=== PATIENT | female | born 1975 | race Two or more races ===

== ENCOUNTER 2020-07-18 09:47 | Outpatient (CLI) | payer BC ==
[2020-07-18] MEDS ORDERED: GADOTERATE MEGLUMINE 10 MMOL/20 ML VIAL IV ONE (15:37)
== END 2020-07-18 23:59 | disposition home or self-care (01) ==
LOC: MRI 09:47
PROVIDERS: ATTEND Family Medicine
DX: K76.9 Liver disease, unspecified (principal); K76.0 Fatty (change of) liver, not elsewhere classified
CPT/HCPCS: 74183; A9575

== ENCOUNTER 2020-07-29 09:40 | Outpatient (CLI) | payer BC ==
[2020-07-29 11:37] LABS: CALCIUM, SERUM 8.8 mg/dL (8.5-10.1); CREATININE 0.8 mg/dL (0.6-1.3); POTASSIUM 4.6 mmol/L (3.5-5.1)
[2020-07-29 11:43] LABS: C-REACTIVE PROTEIN 0.3 mg/dL (0.0-0.9); URIC ACID 4.5 mg/dL (2.6-7.2)
[2020-07-31 17:07] LABS: H. PYLORI AB IgA <9.0 units (0.0-8.9)
== END 2020-07-29 23:59 | disposition home or self-care (01) ==
LOC: LAB 09:40
PROVIDERS: ATTEND Family Medicine
DX: D25.9 Leiomyoma of uterus, unspecified (principal); D18.03 Hemangioma of intra-abdominal structures; M25.9 Joint disorder, unspecified; M25.50 Pain in unspecified joint
CPT/HCPCS: 36415; 80048-TC; 84550-TC; 85652-TC; 86140-TC; 86431-TC; 86677

== ENCOUNTER 2020-08-11 11:07 | Outpatient (CLI) | payer BC ==
[2020-08-11] MEDS ORDERED: GADOTERATE MEGLUMINE 10 MMOL/20 ML VIAL IV ONE (11:08)
== END 2020-08-11 23:59 | disposition home or self-care (01) ==
LOC: MRI 11:07
PROVIDERS: ATTEND Family Medicine
DX: K76.0 Fatty (change of) liver, not elsewhere classified (principal); K76.89 Other specified diseases of liver; D18.03 Hemangioma of intra-abdominal structures
CPT/HCPCS: 74183; A9575

== ENCOUNTER 2020-08-26 10:10 | Outpatient (CLI) | payer BC ==
[2020-08-26 10:47] LABS: BILIRUBIN,URINE NEGATIVE (NEGATIVE); COLOR,URINE YELLOW (YELLOW); LEUKOCYTE ESTERASE ,URINE NEGATIVE (NEGATIVE); NITRITE, URINE NEGATIVE (NEGATIVE); PROTEIN,URINE NEGATIVE (NEGATIVE); UGLUCOSE NEGATIVE (NEGATIVE); UROBILINOGEN,URINE 0.2 EU/dL (0.2)
[2020-08-26 10:52] LABS: CALCIUM, SERUM 8.3 mg/dL (8.5-10.1); CREATININE 0.7 mg/dL (0.6-1.3); POTASSIUM 4.3 mmol/L (3.5-5.1)
[2020-08-26 11:59] LABS: BACTERIA,URINE Rare /HPF (None Seen); SQUAMOUS EPITHELIAL CELL,UR Few /HPF (None Seen); WBC,URINE 0-2 /HPF (0-3)
== END 2020-08-26 23:59 | disposition home or self-care (01) ==
LOC: LAB 10:10
PROVIDERS: ATTEND Family Medicine
DX: Z00.01 Encounter for general adult medical examination with abnormal findings (principal)
CPT/HCPCS: 36415; 80048-TC; 80061-TC; 81001; 84550-TC

== ENCOUNTER 2020-12-03 12:34 | Emergency (ER) | payer BC ==
[~2020-12-03] VITALS: Ht 160 cm; Wt 76.2 kg
[2020-12-03] MEDS ORDERED: ACETAMINOPHEN ES 500 MG TABLET PO ONE (13:00)
[2020-12-03] MEDS ORDERED: KETOROLAC TROMETHAMINE INJ 30 MG/ML VIAL IM ONE (13:00)
[2020-12-03] MEDS ORDERED: ACETAMINOPHEN ES 500 MG TABLET ONE (13:08)
[2020-12-03] MEDS ORDERED: KETOROLAC TROMETHAMINE 15 MG/ML VIAL ONE (13:08)
[2020-12-03] MEDS ORDERED: CYCL10TA9 PO (13:46)
[2020-12-03] MEDS ORDERED: CYCL5TAB PO (13:47)
--- NOTE | 2020-12-03 13:58 | NUR ---
Patient discharged to home in stable condition. Written and verbal after care instructions given. Patient verbalizes understanding of instruction.
[2020-12-03 14:04] VITALS: BP 108/66
== END 2020-12-03 14:04 | disposition home or self-care (01) ==
LOC: ER 12:34
DX: M62.838 Other muscle spasm (principal); H11.32 Conjunctival hemorrhage, left eye; R51.9 Headache, unspecified; Z79.899 Other long term (current) drug therapy
CPT/HCPCS: 70450; 96372; 99284; J1885

== ENCOUNTER 2021-02-17 09:03 | Outpatient (CLI) | payer BC ==
[~2021-02-17 09:03] MED LIST: CYCL5TAB PO
[2021-02-17] MEDS ORDERED: GADOTERATE MEGLUMINE 10 MMOL/20 ML VIAL IV ONE (09:04)
== END 2021-02-17 23:59 | disposition home or self-care (01) ==
LOC: MRI 09:03
PROVIDERS: ATTEND Nurse Practitioner
DX: D18.09 Hemangioma of other sites (principal); K76.0 Fatty (change of) liver, not elsewhere classified
CPT/HCPCS: 74183; A9575

== ENCOUNTER 2021-03-13 11:02 | Outpatient (CLI) | payer BC ==
[2021-03-13] MEDS ORDERED: GADOTERATE MEGLUMINE 10 MMOL/20 ML VIAL IV ONE (11:03)
== END 2021-03-13 23:59 | disposition home or self-care (01) ==
LOC: MRI 11:02
PROVIDERS: ATTEND Family Medicine
DX: G31.9 Degenerative disease of nervous system, unspecified (principal); R89.1 Abnormal level of hormones in specimens from other organs, systems and tissues
CPT/HCPCS: 70553; A9575

== ENCOUNTER 2021-07-24 12:37 | Outpatient (CLI) | payer BC | END 2021-07-24 23:59 | disposition home or self-care (01) | LOC: MRI 12:37 | PROVIDERS: ATTEND Family Medicine | DX: M19.011 Primary osteoarthritis, right shoulder (principal); M19.012 Primary osteoarthritis, left shoulder; M75.121 Complete rotator cuff tear or rupture of right shoulder, not specified as traumatic; M75.111 Incomplete rotator cuff tear or rupture of right shoulder, not specified as traumatic; M47.812 Spondylosis without myelopathy or radiculopathy, cervical region; M48.02 Spinal stenosis, cervical region; M25.78 Osteophyte, vertebrae | CPT/HCPCS: 72141-TC; 73221-TC ==

== ENCOUNTER 2021-09-08 09:05 | Outpatient (CLI) | payer BC | END 2021-09-08 23:59 | disposition home or self-care (01) | LOC: US 09:05 | PROVIDERS: ATTEND Family Medicine | DX: N83.201 Unspecified ovarian cyst, right side (principal); N83.202 Unspecified ovarian cyst, left side; D25.9 Leiomyoma of uterus, unspecified | CPT/HCPCS: 76856-TC ==

== ENCOUNTER → 2021-09-25 | Outpatient (CLI) | payer BC ==
[~2021-09-25] MED LIST changes: +GADOTERATE MEGLUMINE 10 MMOL/20 ML VIAL IV ONE; +HYDR-3972 PO
[2021-09-25 10:27] LABS: CREATININE 0.6 mg/dL (0.6-1.3)
== END | disposition home or self-care (01) ==
LOC: LAB 09:20
PROVIDERS: ATTEND Family Medicine
DX: N83.201 Unspecified ovarian cyst, right side (principal); N83.202 Unspecified ovarian cyst, left side; N85.2 Hypertrophy of uterus; D25.9 Leiomyoma of uterus, unspecified; N83.8 Other noninflammatory disorders of ovary, fallopian tube and broad ligament; R16.0 Hepatomegaly, not elsewhere classified; K76.0 Fatty (change of) liver, not elsewhere classified; K76.89 Other specified diseases of liver
CPT/HCPCS: 36415; 72197; 74183; 82565; 84520; 86304; A9575

== ENCOUNTER 2021-09-28 15:28 | Emergency (ER) | payer BC, OTHER ==
[~2021-09-28] VITALS: Ht 160 cm; Wt 74.8 kg
[~2021-09-28 15:28] MED LIST changes: -GADOTERATE MEGLUMINE 10 MMOL/20 ML VIAL IV ONE; -HYDR-3972 PO
--- NOTE | 2021-09-28 15:34 | NUR ---
URINE SPECIMEN COLLECTED AND SENT TO LAB.
--- NOTE | 2021-09-28 15:36 | NUR ---
AT BEDSIDE FOR EVAL.
[2021-09-28] MEDS ORDERED: MORPHINE SULFATE INJ 4 MG/ML DISP.SYRIN ONE (15:44)
[2021-09-28] MEDS ORDERED: ONDANSETRON HCL/PF 4 MG/2 ML VIAL ONE (15:44)
--- NOTE | 2021-09-28 15:47 | NUR ---
IV LINE ESTABLISHED BLOOD DRAWN AND SENT TO LAB.
[2021-09-28] MEDS ORDERED: IV NS 0.9% 1,000 ML BAG IV ONE (16:00)
[2021-09-28] MEDS ORDERED: MORPHINE SULFATE INJ 2 MG/ML DISP.SYRIN IV ONE (16:00)
[2021-09-28] MEDS ORDERED: ONDANSETRON HCL/PF 4 MG/2 ML VIAL IVP ONE (16:00)
[2021-09-28 16:17] LABS: BASOPHILS # (AUTO) 0.1 K/uL (0.0-0.2); BASOPHILS % (AUTO) 0.8 % (0.0-2.0); EOSINOPHILS % (AUTO) 0.8 % (0.0-6.0); HEMATOCRIT 33 % (33-45); HEMOGLOBIN 10.9 g/dL (11.5-14.8); LYMPHOCYTES # (AUTO) 2.1 K/uL (0.8-4.8); LYMPHOCYTES % (AUTO) 17.2 % (20.0-44.0); MEAN CORPUSCULAR HGB CONC 33 g/dl (31.0-36.0); MEAN CORPUSCULAR VOLUME 78 fL (82-100); MONOCYTES # (AUTO) 1.1 K/uL (0.1-1.30); MONOCYTES % (AUTO) 9.2 % (2.0-12.0); NEUTROPHILS # (AUTO) 8.7 K/uL (1.8-8.9); PLATELET COUNT (AUTO) 382 K/uL (150-450); RED BLOOD CELL COUNT(AUTO) 4.27 MIL/uL (4.0-5.2); WHITE BLOOD COUNT (AUTO) 12.1 K/uL (4.3-11.0)
[2021-09-28 16:35] LABS: ALBUMIN 3.1 g/dL (3.4-5.0); BILIRUBIN,DIRECT 0.1 mg/dL (0.0-0.2); BILIRUBIN,TOTAL 0.2 mg/dL (0.2-1.0); CALCIUM, SERUM 8.6 mg/dL (8.5-10.1); CREATININE 0.7 mg/dL (0.6-1.3); POTASSIUM 3.7 mmol/L (3.5-5.1); TOTAL PROTEIN, SERUM 7.7 g/dL (6.4-8.2)
[2021-09-28 17:03] LABS: BILIRUBIN,URINE NEGATIVE (NEGATIVE); COLOR,URINE YELLOW (YELLOW); LEUKOCYTE ESTERASE ,URINE NEGATIVE (NEGATIVE); NITRITE, URINE NEGATIVE (NEGATIVE); PROTEIN,URINE NEGATIVE (NEGATIVE); UGLUCOSE NEGATIVE (NEGATIVE); UROBILINOGEN,URINE 0.2 EU/dL (0.2)
[2021-09-28] MEDS ORDERED: HYDR-3972 PO ×3 (17:03→17:26)
--- NOTE | 2021-09-28 17:20 | NUR ---
DR JETT AT BEDSIDE
[2021-09-28 17:30] VITALS: BP 123/68
--- NOTE | 2021-09-28 17:38 | NUR ---
IV removed. Catheter intact and site benign. Pressure and 4x4 applied to site. No bleeding noted.Patient discharged to home in stable condition. Written and verbal after care instructions given. Patient verbalizes understanding of instruction.
[2021-09-28 17:45] LABS: BACTERIA,URINE None seen /HPF (None Seen); WBC,URINE 0-2 /HPF (0-3)
== END 2021-09-28 17:41 | disposition home or self-care (01) ==
LOC: ER 15:29
DX: R10.2 Pelvic and perineal pain (principal); D25.9 Leiomyoma of uterus, unspecified
CPT/HCPCS: 36415; 80048; 80076; 81001; 85025; 96361; 96374; 96375; 99284; J2270; J2405; J7030

== ENCOUNTER 2021-10-21 11:00 | Outpatient (CLI) | payer BC, OTHER ==
[~2021-10-21 11:00] MED LIST changes: +HYDR-3972 PO
[2021-10-21 12:03] LABS: BASOPHILS # (AUTO) 0.1 K/uL (0.0-0.2); BASOPHILS % (AUTO) 2.3 % (0.0-2.0); EOSINOPHILS % (AUTO) 3.5 % (0.0-6.0); HEMATOCRIT 35 % (33-45); HEMOGLOBIN 11.7 g/dL (11.5-14.8); LYMPHOCYTES # (AUTO) 2.3 K/uL (0.8-4.8); LYMPHOCYTES % (AUTO) 51.7 % (20.0-44.0); MEAN CORPUSCULAR HGB CONC 34 g/dl (31.0-36.0); MEAN CORPUSCULAR VOLUME 75 fL (82-100); MONOCYTES # (AUTO) 0.3 K/uL (0.1-1.30); MONOCYTES % (AUTO) 7.3 % (2.0-12.0); NEUTROPHILS # (AUTO) 1.5 K/uL (1.8-8.9); NEUTROPHILS % (AUTO) 35.2 % (43.0-81.0); PLATELET COUNT (AUTO) 450 K/uL (150-450); RED BLOOD CELL COUNT(AUTO) 4.65 MIL/uL (4.0-5.2); WHITE BLOOD COUNT (AUTO) 4.4 K/uL (4.3-11.0)
[2021-10-21 12:21] LABS: CALCIUM, SERUM 9.3 mg/dL (8.5-10.1); CREATININE 0.7 mg/dL (0.6-1.3); POTASSIUM 4.1 mmol/L (3.5-5.1)
== END 2021-10-21 23:59 | disposition home or self-care (01) ==
LOC: LAB 11:00
PROVIDERS: ATTEND Family Medicine
DX: R73.9 Hyperglycemia, unspecified (principal); D72.829 Elevated white blood cell count, unspecified
CPT/HCPCS: 36415; 80048-TC; 85025-TC

== ENCOUNTER → 2021-10-30 | Outpatient (CLI) | payer BC, OTHER ==
[2021-10-31 08:07] LABS: FOLLICLE STIMULATION HORMONE 41.6 mIU/mL (.)
== END | disposition home or self-care (01) ==
LOC: LAB 10:59
PROVIDERS: ATTEND Family Medicine
DX: R23.2 Flushing (principal)
CPT/HCPCS: 36415; 82670; 83001; 84439-TC

== ENCOUNTER 2022-01-20 10:25 | Outpatient (CLI) | payer BC, OTHER ==
[2022-01-20 11:08] LABS: CALCIUM, SERUM 8.9 mg/dL (8.5-10.1); CREATININE 0.8 mg/dL (0.6-1.3); POTASSIUM 4.3 mmol/L (3.5-5.1)
[2022-01-20] MEDS ORDERED: IV NS 0.9% 250 ML IV ONE (11:46)
[2022-01-20] MEDS ORDERED: IOHEXOL-350 100 ML VIAL IV ONE (11:46)
== END 2022-01-20 23:59 | disposition home or self-care (01) ==
LOC: LAB 10:25
PROVIDERS: ATTEND Family Medicine
DX: R91.8 Other nonspecific abnormal finding of lung field (principal); G54.0 Brachial plexus disorders
CPT/HCPCS: 71275; 80048; 36415; J7050; Q9967

== ENCOUNTER 2022-07-16 10:12 | Outpatient (CLI) | payer BC, OTHER | END 2022-07-16 23:59 | disposition home or self-care (01) | LOC: CT 10:12 | PROVIDERS: ATTEND Radiology Diagnostic Radiology | DX: H69.81 Other specified disorders of Eustachian tube, right ear (principal); H90.11 Conductive hearing loss, unilateral, right ear, with unrestricted hearing on the contralateral side; J32.8 Other chronic sinusitis | CPT/HCPCS: 70480-TC ==

== ENCOUNTER 2022-10-05 08:44 | Outpatient (CLI) | payer BC, OTHER | END 2022-10-05 23:59 | disposition home or self-care (01) | LOC: WOU 08:44 | PROVIDERS: ATTEND Surgery | DX: N60.92 Unspecified benign mammary dysplasia of left breast (principal); N63.0 Unspecified lump in unspecified breast; I10 Essential (primary) hypertension | CPT/HCPCS: G0463 ==

== ENCOUNTER 2022-10-26 09:40 | Outpatient (CLI) | payer BC, OTHER | END 2022-10-26 23:59 | disposition home or self-care (01) | LOC: WOU 09:40 | PROVIDERS: ATTEND Surgery | DX: N60.92 Unspecified benign mammary dysplasia of left breast (principal); N63.0 Unspecified lump in unspecified breast; I10 Essential (primary) hypertension | CPT/HCPCS: G0463 ==

== ENCOUNTER 2022-11-24 11:09 | Outpatient (CLI) | payer BC, OTHER ==
[2022-11-24 11:40] LABS: CALCIUM, SERUM 9.1 mg/dL (8.5-10.1); CREATININE 0.8 mg/dL (0.6-1.3); POTASSIUM 4.3 mmol/L (3.5-5.1)
== END 2022-11-24 23:59 | disposition home or self-care (01) ==
LOC: LAB 11:09
PROVIDERS: ATTEND Family Medicine
DX: R42 Dizziness and giddiness (principal)
CPT/HCPCS: 36415; 80048-TC

== ENCOUNTER 2024-01-17 09:58 | Outpatient (CLI) | payer BC, OTHER ==
[2024-01-17] MEDS ORDERED: IV NS 0.9% 250 ML IV ONE (11:00)
[2024-01-17] MEDS ORDERED: CT SWABBABLE VALVE TRANS SET 1 EA INFUS.SET MC ONE (11:00)
[2024-01-17] MEDS ORDERED: IOHEXOL-300 100 ML VIAL IV ONE (11:00)
== END 2024-01-17 23:59 | disposition home or self-care (01) ==
LOC: US 09:58
PROVIDERS: ATTEND Family Medicine
DX: D18.03 Hemangioma of intra-abdominal structures (principal); R16.0 Hepatomegaly, not elsewhere classified; N83.291 Other ovarian cyst, right side
CPT/HCPCS: 74178; 76700; J7050; Q9967